=== PATIENT | female | born 1945 | race Caucasian/White ===

== ENCOUNTER → 2017-08-16 | Outpatient (REF) | payer MEDICARE, MEDICAID ==
[2017-08-16 18:06] LABS: PARTIAL THROMBOPLASTIN TIME 39.9 SECONDS (26.8-37.9)
[2017-08-16 18:17] LABS: INR 1.01; PROTHROMBIN TIME 13.4 SECONDS (12.4-14.5)
[2017-08-16 18:41] LABS: URIC ACID 3.9 MG/DL (2.6-6.0)
== END ==
LOC: M LAB REF 16:55
DX: C85.90 Non-Hodgkin lymphoma, unspecified, unspecified site (principal)
CPT/HCPCS: 84550

== ENCOUNTER → 2017-09-07 | Outpatient (CLI) | payer MEDICARE, MEDICAID ==
[~2017-09-07] MED LIST: LIDOCAINE 1% MDV 20ML VIAL As Ordered
== END ==
LOC: M RAD 07:52 → M RADPRO 07:52
DX: R59.0 Localized enlarged lymph nodes (principal); Z95.0 Presence of cardiac pacemaker; Z88.5 Allergy status to narcotic agent; Z88.8 Allergy status to other drugs, medicaments and biological substances; Z79.899 Other long term (current) drug therapy
CPT/HCPCS: 38505; 76536

== ENCOUNTER 2022-06-19 08:15 | Day surgery (SDC) | payer MEDICARE, MEDICAID ==
[~2022-06-19] VITALS: Ht 162.6 cm; Wt 66.2 kg
[~2022-06-19 08:15] MED LIST changes: +BSS IRRIG/VANCO(10MG)/TOBRA(5MG)/EPINEPH(1:1000-0.5CC)500ML BAG-ORONLY IR ONE; +CEFUROXIME 1MG/0.1ML INTRACAMERAL INJ As Ordered ONE; +COQ1400C2 PO; +CYCLOPENTOLATE 1% OPHTH SOLN 2ML BTL OS SCH; +ELIQ5TAB PO; +FURO20TA2 PO; -LIDOCAINE 1% MDV 20ML VIAL As Ordered; +LIDOCAINE 1% SDV 5ML VIAL As Ordered ONE; +LIDOCAINE 3.5 % 1ML OPHTH TOPICAL GEL OU ONE; +LISI10TA22 PO; +LOPR1TAB6 PO; +LOSA25TA13 PO; +LOVA10TA PO; +LOVA20TA2 PO; +MULT-90 PO; +MULTCAP PO; +OFLOXACIN 0.3 % (OCUFLOX) OPTH SOL 5ML OS ONE; +OMEG100011 PO; +PHENYLEPHRINE 10% OPHTH SOL 5ML OS PRN; +PHENYLEPHRINE 2.5% OPHTH SOL 2ML OS SCH; +SELE100T6 PO; +SPIR-10 PO; +TROPICAMIDE 1% OPHTH SOLN 15ML OS SCH
[2022-06-19] MEDS ORDERED: PREDOPD (09:01)
[2022-06-19] MEDS ORDERED: OFLO3OPSO (09:01)
[2022-06-19] MEDS ORDERED: KETO0.5S15 (09:01)
[2022-06-19] MEDS ORDERED: MIDAZOLAM INJ 2MG/2ML VIAL As Ordered ONE (09:41)
[2022-06-19] MEDS ORDERED: fentaNYL 100 MCG/2 ML INJECTION As Ordered ONE (09:41)
[2022-06-19 10:04] VITALS: BP 139/87
== END 2022-06-19 10:30 | disposition home or self-care (01) ==
LOC: M SDC 08:15
PROVIDERS: ATTEND Ophthalmology
DX: H25.12 Age-related nuclear cataract, left eye (principal); I11.9 Hypertensive heart disease without heart failure; Z95.0 Presence of cardiac pacemaker; I48.91 Unspecified atrial fibrillation; E78.00 Pure hypercholesterolemia, unspecified; Z85.72 Personal history of non-Hodgkin lymphomas; Z92.21 Personal history of antineoplastic chemotherapy; M81.0 Age-related osteoporosis without current pathological fracture; Z79.899 Other long term (current) drug therapy; Z79.01 Long term (current) use of anticoagulants
CPT/HCPCS: 66984; V2632

== ENCOUNTER → 2023-04-26 | Day surgery (SDC) | payer MEDICARE, MEDICAID ==
[~2023-04-26] VITALS: Ht 165.1 cm; Wt 62.9 kg
[~2023-04-26] MED LIST changes: +ARTIDRO OP; +CYCLOPENTOLATE 1% OPHTH SOLN 2ML BTL OD SCH; -CYCLOPENTOLATE 1% OPHTH SOLN 2ML BTL OS SCH; +KETO0.5S4 OD; +LOSA50TA28 PO; +METO50TA7 PO; +MIDAZOLAM INJ 2MG/2ML VIAL As Ordered ONE; +OFLO5DRO OD; +OFLOXACIN 0.3 % (OCUFLOX) OPTH SOL 5ML OD ONE; -OFLOXACIN 0.3 % (OCUFLOX) OPTH SOL 5ML OS ONE; +PHENYLEPHRINE 10% OPHTH SOL 5ML OD PRN; -PHENYLEPHRINE 10% OPHTH SOL 5ML OS PRN; +PHENYLEPHRINE 2.5% OPHTH SOL 2ML OD SCH; -PHENYLEPHRINE 2.5% OPHTH SOL 2ML OS SCH; +PREDOPD; +TROPICAMIDE 1% OPHTH SOLN 15ML OD SCH; -TROPICAMIDE 1% OPHTH SOLN 15ML OS SCH; +fentaNYL 100 MCG/2 ML INJECTION As Ordered ONE
[2023-04-26 12:50] VITALS: BP 140/70; TEMP 96.8; O2SAT 95
== END | disposition home or self-care (01) ==
LOC: M SDC 10:15
PROVIDERS: ATTEND Ophthalmology
DX: H25.11 Age-related nuclear cataract, right eye (principal); I48.91 Unspecified atrial fibrillation; I10 Essential (primary) hypertension; E78.00 Pure hypercholesterolemia, unspecified; Z95.0 Presence of cardiac pacemaker; Z79.899 Other long term (current) drug therapy; Z79.01 Long term (current) use of anticoagulants; Z85.72 Personal history of non-Hodgkin lymphomas; Z92.21 Personal history of antineoplastic chemotherapy
CPT/HCPCS: 66984; J0697; J2250; J3010; V2632